=== PATIENT | female | born 1950 | race Caucasian/White ===

== ENCOUNTER 2018-03-19 13:25 | Observation (INO) | payer OTHER ==
[~2018-03-19] VITALS: Ht 170.2 cm; Wt 60.0 kg
[~2018-03-19 13:25] MED LIST: ALEN1TAB2 PO; CALC-143 PO; CANA100T PO; CHOL100062 PO; DOCU-144 PO; EMPA1TAB11 PO; GABA-526 PO; GABA300C16 PO; HYDR-3498 PO; IBUP-1542 PO; RANI300T PO; SIMV10TA2 PO; SITA1TAB7 PO; TOPI25TA10 PO
--- NOTE | 2018-03-19 14:19 | ERD ---
ER Documentation Chief Complaint Chief Complaint BIB RA FROM [facility] [place]AL OF CP/SOB HPI The patient is a 67-year-old female, presenting to the ER from [facility] because of chest pain and dyspnea after having had left hand surgery around 12 PM. She complains of generalized body twitching, left-sided chest pain 8/10, dyspnea. She denies fever, chills, syncope, near syncope, neck pain, chest pain with vomiting/radiation/exertion/diaphoresis, abdominal pain, vomiting, dysuria, diarrhea. She does not smoke nor drink Past medical history: Dyslipidemia, diabetes mellitus, diabetic neuropathy Past surgical history: Left hand surgery ROS All systems reviewed and are negative except as per history of present illness. Medications Home Meds Active Scripts Docusate Sodium* (Colace*) 100 Mg Capsule, 100 MG PO TID, #30 CAP Prov:CARLOS VILLALOBOS MD 08/10/15 Hydrocodone Bit-Acetaminophen* ([place]*) 5-325 Mg Tab, 1 TAB PO Q6 PRN for PAIN, #20 TAB Prov:CARLOS VILLALOBOS MD 08/10/15 Ibuprofen* (Motrin*) 600 Mg Tab, 600 MG PO Q8, #30 TAB Prov:CARLOS VILLALOBOS MD 08/10/15 Reported Medications Cholecalciferol* (Vitamin D3*) 1,000 Unit Tablet, 1000 UNIT PO DAILY, TAB 08/04/16 Calcium Citrate/Vitamin D (Citracal-Vitamin D 200 MG-250) 1 Each Tablet, 1 EACH PO BID, TAB 08/04/16 Empagliflozin/Metformin HCl (Synjardy 12.5-500 mg Tablet) 1 Each Tablet, 1 EACH PO, TAB 08/04/16 Gabapentin* (Gabapentin*) 300 Mg Capsule, 300 MG PO BID, #60 CAP 08/04/16 Ranitidine Hcl* (Ranitidine Hcl*) 300 Mg Tablet, 300 MG PO HS, #30 TAB 08/04/16 Alendronate Sodium/Vitamin D3 (Fosamax Plus D 70 mg-2,800 Iu) 1 Each Tablet, 1 EACH PO, TAB 08/04/16 Simvastatin (Simvastatin) 10 Mg Tablet, 10 MG PO QHS, #30 TAB 08/04/16 Gabapentin* (Gabapentin*) 600 Mg Tablet, 600 MG PO QHS, #60 TAB 5/31/16 Topiramate* (Topiramate*) 25 Mg Tablet, 25 MG PO BID, TAB 08/10/15 Ranitidine Hcl* (Ranitidine Hcl*) 300 Mg Tablet, 300 MG PO HS, #30 TAB 08/10/15 Sitagliptin Phos-Metformin Hcl (Janumet) 50-1,000 Mg Tablet, 1 TAB PO DAILY, #60 TAB 08/10/15 Canagliflozin (Invokana) 100 Mg Tablet, 100 MG PO DAILY, TAB 08/10/15 Allergies Allergies: Coded Allergies: No Known Drug Allergy (Verified Allergy, Unknown, 10/08/13) PMhx/Soc History of Surgery: No Anesthesia Reaction: No Hx Neurological Disorder: No Hx Respiratory Disorders: No Hx Cardiac Disorders: Yes (HIGH CHOL) Hx Psychiatric Problems: No Hx Miscellaneous Medical Probl: No Hx Alcohol Use: Yes (OCCASIONALLY) Hx Substance Use: No Hx Tobacco Use: No Physical Exam Vitals Vital Signs Date Temp Pulse Resp B/P (MAP) Pulse Ox O2 O2 Flow FiO2 Time Delivery Rate 03/19/18 89 12 107/73 97 Room Air 17:07 (84) 03/19/18 100 18 132/56 97 Room Air 16:15 (81) 03/19/18 93 17 107/55 97 Room Air 14:20 (72) 03/19/18 97.9 89 17 116/59 97 13:57 (78) Physical Exam Const: No acute distress. Head: Atraumatic. Eyes: Normal Conjunctiva. ENT: Normal External Ears, Nose and Mouth. Neck: Full range of motion. No meningismus. Resp: Clear to auscultation bilaterally. Cardio: Regular rate and rhythm. Abd: Soft, non distended, normal bowel sounds, non tender. Skin: No petechiae or rashes. Back: No midline or flank tenderness. Ext: No cyanosis, or edema. Left hand is immobilized Neur: Awake and alert. No focal deficit Psych: Normal Mood and Affect. Result Diagram: 03/19/18 1439 03/19/18 1440 Results 24 hrs Laboratory Tests Test 03/19/18 14:39 03/19/18 14:40 White Blood Count 11.0 10^3/ul Red Blood Count 4.48 10^6/ul Hemoglobin 13.8 g/dl Hematocrit 40.1 % Mean Corpuscular Volume 89.5 fl Mean Corpuscular Hemoglobin 30.8 pg Mean Corpuscular Hemoglobin Concent 34.4 g/dl Red Cell Distribution Width 13.1 % Platelet Count 318 10^3/UL Mean Platelet Volume 9.2 fl Immature Granulocytes % 0.500 % Neutrophils % 77.3 % Lymphocytes % 14.3 % Monocytes % 6.5 % Eosinophils % 0.9 % Basophils % 0.5 % Nucleated Red Blood Cells % 0.0 /100WBC Immature Granulocytes # 0.060 10^3/ul Neutrophils # 8.5 10^3/ul Lymphocytes # 1.6 10^3/ul Monocytes # 0.7 10^3/ul Eosinophils # 0.1 10^3/ul Basophils # 0.1 10^3/ul Nucleated Red Blood Cells # 0.0 10^3/ul Prothrombin Time 12.3 Sec Prothrombin Time Ratio 1.0 INR International Normalized Ratio 0.90 Activated Partial Thromboplast Time 27.3 Sec D-Dimer 1375.14 ng/ml D-Dimer Comment Sodium Level 141 mmol/L Potassium Level 4.3 mmol/L Chloride Level 109 mmol/L Carbon Dioxide Level 24 mmol/L Anion Gap 8 Blood Urea Nitrogen 16 mg/dl Creatinine 0.50 mg/dl Est Glomerular Filtrat Rate mL/min > 60 mL/min Glucose Level 121 mg/dl Calcium Level 9.4 mg/dl Troponin I < 0.012 ng/ml Current Medications Medications Dose Sig/Jason Start Time Status Last (Trade) Ordered Route PRN Stop Time Admin Dose Reason Admin Sodium 1,000 ml @ Q1H ONCE 03/19/18 DC 03/19/18 Chloride 1,000 mls/hr IV 14:30 03/19/18 14:37 15:29 IV Flush 10 ml STK-MED 03/19/18 DC 03/19/18 (NS 10 ml) ONCE .ROUTE 15:49 03/19/18 15:56 15:50 Sodium 100 ml @ ud STK-MED 03/19/18 DC 03/19/18 Chloride ONCE .ROUTE 15:49 03/19/18 15:58 15:50 Iohexol 100 ml @ ud STK-MED 03/19/18 DC 03/19/18 ONCE .ROUTE 15:49 03/19/18 15:56 15:50 Aspirin 162 mg ONCE ONCE 03/19/18 DC 03/19/18 (Aspirin) PO 17:00 03/19/18 16:48 17:01 1,000 unit DAILY PO 03/20/18 UNV Cholecalcifer 09:00 ol (Vitamin D) Gabapentin 200 mg QHS PO 03/19/18 UNV (Neurontin) 21:00 10 mg QHS PO 03/19/18 UNV Miscellaneous 21:00 Information IV Flush 3 ml PER 03/19/18 UNV (NS 3 ml) PROTOCOL IV 18:30 Ondansetron 4 mg Q6H PRN 03/19/18 UNV HCl (Zofran IV NAUSEA 18:30 Inj) AND/OR VOMITING 1 tab Q5M PRN 03/19/18 UNV Nitroglycerin SL CHEST 18:30 PAIN (Nitroglyceri n (Sl Tab) 0.4 Mg) 650 mg Q6H PRN 03/19/18 UNV Acetaminophen PO PAIN 18:30 (Tylenol LEVEL 1-3 OR Tab) FEVER Morphine 2 mg Q4H PRN 03/19/18 UNV Sulfate IV PAIN 18:30 (morphine) LEVEL 7-10 Docusate 100 mg Q12H PRN 03/19/18 UNV Sodium PO 18:30 (Colace) CONSTIPATION Magnesium 30 ml DAILY PRN 03/19/18 UNV Hydroxide PO 18:30 (Milk Of Mag) CONSTIPATION 40 mg BID IV 03/19/18 UNV Pantoprazole 21:00 (Protonix Iv) Enoxaparin 40 mg DAILY SC 03/20/18 UNV Sodium 09:00 (Lovenox) Procedures/[place] [id number] Radiology Main Line: [phone] DIAGNOSTIC IMAGING REPORT Patient: IMMANUEL MENDOZA : 1950 Age: 67 Sex: F MR #: [id number] DOS: 03/19/18 1523 Ordering MD: FITO BLEDSOE MD Location: E/R Room/Bed: PROCEDURE: CTA Chest and pulmonary angiogram. CLINICAL INDICATION: Chest pain and shortness of breath.. TECHNIQUE: CT scan of the chest and CT pulmonary angiogram was performed on multi-slice volumetric CT scanner. High-resolution thin slice coronal and sagittal imaging was obtained from the axial source images following the uncomplicated intravenous administration of 100 cc of Isovue 370 contrast. The images were reviewed on a PACS workstation. 3-D post-processing performed. DICOM images are available. DLP = 465.6 mGy-cm. CTDIVol = 25.4, 12 mGy. One or more of the following dose reduction techniques were used: Automated exposure control. Adjustment of the mA and/or kV according to patient size. Use of iterative reconstruction technique. COMPARISON: No prior studies are available for comparison. FINDINGS: CT chest: The lungs are clear of alveolar infiltrates, edema, or effusions. There is mild scarring in the right middle lobe. Small subpleural nodules measuring up to 3 mm is seen in the lingula of the left upper lobe likely post inflammatory in nature.. Mediastinum and hilum show no significant mass or adenopathy. The vascular structures of the mediastinum are normal in course and caliber. The heart size is normal without pericardial thickening or effusion. The axillary, subpectoral, and supraclavicular regions are unremarkable. Imaging obtained through the upper abdomen is equally unremarkable. The adrenal glands are symmetrically normal. Chest wall is unremarkable. The spine is unremarkable. There is a small hiatal hernia. There is an old granulomas calcification in the right lobe of the liver. CT pulmonary angiogram: The main pulmonary artery, bilateral pulmonary arterial trunks, lobar and segmental branches of the pulmonary arteries show no evidence of filling defect and/or pulmonary emboli. The aorta is normal in caliber without aneurysm or dissection. IMPRESSION: 1. No evidence of pulmonary emboli, aortic aneurysm or dissection.. 2. Mild fibronodular scarring in the right middle lobe and lingula likely from old granulomatous disease. 3. Small hiatal hernia.. RPTAT: GG .Abdiaziz Redman MD, MD Date Time Electronically viewed and signed by .Abdiaziz Redman MD, on 03/19/2018 16:31 .L/ CC: FITO BLEDSOE MD [id number] [place] [address] Radiology Main Line: [phone] DIAGNOSTIC IMAGING REPORT Patient: IMMANUEL MENDOZA : 1950 Age: 67 Sex: F MR #: [id number] DOS: 03/19/18 1424 Ordering MD: FITO BLEDSOE MD Location: E/R Room/Bed: PROCEDURE: XR Chest. CLINICAL INDICATION: Chest Pain. TECHNIQUE: Single frontal view of the chest was obtained COMPARISON: 08/10/2015 FINDINGS: The heart and mediastinum are within normal limits. The lungs are clear. There is no pleural effusion or pneumothorax. The bones and soft tissue show no acute change. IMPRESSION: No acute abnormalities are identified on this single view. RPTAT:AAJJ Physician Fay Date Time Electronically viewed and signed by Jim Gonzalez Physician on 03/19/2018 15:00 MC/ CC: FITO BLEDSOE MD [id number] EKG: At 2:30 PM read by emergency physician Rate/Rhythm: Normal Sinus Rhythm 87 beats/min QRS, ST, T-waves: No ST elevation, no T inversion Impression: Normal EKG EKG: At 3:05 PM read by emergency physician Rate/Rhythm: Normal Sinus Rhythm 85 beats/min QRS, ST, T-waves: No ST elevation, no T inversion Impression: Normal EKG EKG: At 4:12PM read by emergency physician Rate/Rhythm: Normal Sinus Rhythm 98 beats/min QRS, ST, T-waves: No ST elevation, no T inversion Impression: Normal EKG MEDICAL MAKING DECISION: The patient is a 67-year-old female, presenting with acute chest pain after surgery, acute dehydration. She was treated with 1 L normal saline for acute dehydration, aspirin 162 mg p.o. for acute chest pain with good response. The differential diagnoses considered include but are not limited to acute coronary syndrome, acute myocardial infarction, pericarditis, pulmonary embolism, aortic dissection, pneumonia, pleural effusion, pneumothorax, GERD, chest wall pain. Departure Diagnosis: Primary Impression: Chest pain Condition: Stable Comments I discussed the findings with the patient. I discussed the patient with the hospitalist Dr Salgado at 4:40 pm. who was made aware of the lab, the treatment, the patient condition. The patient is admitted to [facility] Disclaimer: Inadvertent spelling and grammatical errors are likely due to EHR/dictation software use and do not reflect on the overall quality of patient care. Also, please note that the electronic time recorded on this note does not necessarily reflect the actual time of the patient encounter. FITO BLEDSOE MD Mar 19, 2018 14:19
[2018-03-19] MEDS ORDERED: SOD CHLORIDE 0.9% 1,000 ML IV ONE (14:30)
[2018-03-19] MEDS ORDERED: IOHEXOL 100 ML ONE (15:49)
[2018-03-19] MEDS ORDERED: SOD CHLORIDE 0.9% 100 ML ONE (15:49)
[2018-03-19] MEDS ORDERED: ASPIRIN 81 MG TAB PO ONE (17:00)
--- NOTE | 2018-03-19 18:18 | HP ---
Date/Time of Note Date/Time of Note DATE: 03/19/18 TIME: 18:10 Assessment/Plan VTE Prophylaxis SCD applied (from Nsg): Yes Pharmacological prophylaxis: LMWH Lines/Catheters IV Catheter Type (from Nrsg): Saline Lock Assessment/Plan Assessment/Plan 1. Acute chest pain, rule out ACS - Patients pain sounds more GI etiology but will rule out ACS - EKG shows no acute ST changes or elevation - Trop negative and will continue to trend - ECHO ordered - Aspirin, nitro, morphine, O2 as needed for pain 2. Acute shortness of breath - CTA negative for PE - Nebs PRN 3. DM - Will check A1c - holding home PO medications - ISS and accuchecks 4. 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 GERD - on H2 [place] and will start on PPI while in house 6. Diet - Carb controlled 7. Code status - Full 8. Disposition - Admit to telemetry for ACS rule out Result Diagram: 03/19/18 1439 03/19/18 1440 Results 24hrs Laboratory Tests Test 03/19/18 14:39 03/19/18 14:40 White Blood Count 11.0 #H Red Blood Count 4.48 Hemoglobin 13.8 Hematocrit 40.1 Mean Corpuscular Volume 89.5 Mean Corpuscular Hemoglobin 30.8 Mean Corpuscular Hemoglobin Concent 34.4 Red Cell Distribution Width 13.1 Platelet Count 318 Mean Platelet Volume 9.2 Immature Granulocytes % 0.500 H Neutrophils % 77.3 H Lymphocytes % 14.3 L Monocytes % 6.5 Eosinophils % 0.9 Basophils % 0.5 Nucleated Red Blood Cells % 0.0 Immature Granulocytes # 0.060 H Neutrophils # 8.5 H Lymphocytes # 1.6 Monocytes # 0.7 Eosinophils # 0.1 Basophils # 0.1 Nucleated Red Blood Cells # 0.0 Prothrombin Time 12.3 Prothrombin Time Ratio 1.0 INR International Normalized Ratio 0.90 Activated Partial Thromboplast Time 27.3 D-Dimer 1375.14 H D-Dimer Comment Sodium Level 141 Potassium Level 4.3 Chloride Level 109 Carbon Dioxide Level 24 Anion Gap 8 Blood Urea Nitrogen 16 Creatinine 0.50 Est Glomerular Filtrat Rate mL/min > 60 Glucose Level 121 Calcium Level 9.4 Troponin I < 0.012 HPI/ROS Admit Date/Time Admit Date/Time 03/19/18 at 1800 Hx of Present Illness 67 yo F with PMH DM and left hand surgery performed today 03/19 presented to ED following chest pain and twitching that occurred in the recovery room. Per daughter, patient had light anesthesia but was not intubated during surgical procedure. She was not recovering quickly in the PACU and was found to be twitching and complaining of sternal chest pain. EKG was performed in recovery and patient was instructed to proceed to ED for evaluation. Patient does admit to sternal chest pain that worsens with deep inhalation. She had associated nausea at time of onset but denies any vomiting, dizziness, LOC, or abdominal issues. Patient admits to having acid reflux with sour taste in her mouth in the mornings. She does admit to being very anxious/nervous this am prior to s urgical intervention. In ED patient was worked up for PE as well given elevated D-Dimer and CTA was negative for acute PE. ROS All 12 systems reviewed and pertinent positives as per HPI. All others negative. Constitutional: nausea; No chills, No fatigue Eyes: No discharge ENT: No congestion Respiratory: pain, shortness of breath; No cough, No sputum, No wheezing Cardiovascular: chest pain, palpitations; No edema, No lightheadedness Gastrointestinal: pain; No constipation, No diarrhea, No nausea, No vomiting Genitourinary: no complaints Musculoskeletal: no complaints Skin: No laceration, No rash Neurologic: No confusion, No focal-weakness, No headache, No syncope Endocrine: no complaints Lymphatic: no complaints Psychological: nl mood/affect Immunologic: no complaints PMH/Family/Social Past Medical History Medical History: diabetes Coded Allergies: No Known Drug Allergy (Verified Allergy, Unknown, 10/08/13) Past Surgical History Past Surgical Hx: other (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 answering questions appropriately HEENT: Atraumatic, normocephalic. The pupils are equal, round and reactive. Extraocular motor are intact Neck: Supple with full range of motion. No rigidity or meningismus Chest: Nontender Lungs: Clear to auscultation bilaterally no crackles rales or wheezing Heart: Normal S1-S2, Regular rhythm and rate. no murmurs Abdomen: Soft , nontender to palpation of the abdomen, bowel sounds are present. No guarding no rebound tenderness , No masses or organomegaly. Extremities: Normal to inspection, no edema no cyanosis Neurologic: Normal mental status, speech is normal, cranial nerves II through XII intact. Additional Comments Home medications reviewed Imaging: PROCEDURE: CTA Chest and pulmonary angiogram. CLINICAL INDICATION: Chest pain and shortness of breath.. TECHNIQUE: CT scan of the chest and CT pulmonary angiogram was performed on the multi-slice volumetric CT scanner. High-resolution thin slice coronal and sagittal imaging was obtained from the axial source images following the uncomplicated intravenous administration of 100 cc of Isovue 370 contrast. The images were reviewed on a PACS workstation. 3-D post-processing performed. DICOM images are available. DLP = 465.6 mGy-cm. CTDIVol = 25.4, 12 mGy. One or more of the following dose reduction techniques were used: Automated exposure control. Adjustment of the mA and/or kV according to patient size. Use of iterative reconstruction technique. COMPARISON: No prior studies are available for comparison. FINDINGS: CT chest: The lungs are clear of alveolar infiltrates, edema, or effusions. There is mild scarring in the right middle lobe. Small subpleural nodules measuring up to 3 mm is seen in the lingula of the left upper lobe likely post inflammatory in nature.. Mediastinum and hilum show no significant mass or adenopathy. The vascular structures of the mediastinum are normal in course and caliber. The heart size is normal without pericardial thickening or effusion. The axillary, subpectoral, and supraclavicular regions are unremarkable. Imaging obtained through the upper abdomen is equally unremarkable. The adrenal glands are symmetrically normal. Chest wall is unremarkable. The spine is unremarkable. There is a small hiatal hernia. There is an old granulomas calcification in the right lobe of the liver. CT pulmonary angiogram: The main pulmonary artery, bilateral pulmonary arterial trunks, lobar and segmental branches of the pulmonary arteries show no evidence of filling defect and/or pulmonary emboli. The aorta is normal in caliber without aneurysm or d issection. IMPRESSION: 1. No evidence of pulmonary emboli, aortic aneurysm or dissection.. 2. Mild fibronodular scarring in the right middle lobe and lingula likely from old granulomatous disease. 3. Small hiatal hernia.. RPTAT: GG .Abdiaziz Redman MD, MD Date Time Electronically viewed and signed by .Abdiaziz Redman MD, MD on 03/19/2018 16:31 PROCEDURE: XR Chest. CLINICAL INDICATION: Chest Pain. TECHNIQUE: Single frontal view of the chest was obtained COMPARISON: 08/10/2015 FINDINGS: The heart and mediastinum are within normal limits. The lungs are clear. There is no pleural effusion or pneumothorax. The bones and soft tissue show no acute change. IMPRESSION: No acute abnormalities are identified on this single view. RPTAT:AAJJ Physician Fay Date Time Electronically viewed and signed by Jim Gonzalez Physician on 03/19/2018 15:00 IMAN BLANTON MD Mar 19, 2018 18:18
[2018-03-19] MEDS ORDERED: morphine 2 MG INJ IV PRN (18:30)
[2018-03-19] MEDS ORDERED: NACL 0.9% 3 ML SYG IV SCH (18:30)
[2018-03-19] MEDS ORDERED: ONDANSETRON 4 MG INJ IV PRN (18:30)
[2018-03-19] MEDS ORDERED: ACETAMINOPHEN 325 MG TAB PO PRN (18:30)
[2018-03-19] MEDS ORDERED: DOCUSATE SODIUM 100 MG CAP PO PRN (18:30)
[2018-03-19] MEDS ORDERED: ALBUTEROL 0.083% (NEB) 2.5 MG/3 ML AMP HHN PRN (18:30)
[2018-03-19] MEDS ORDERED: MAGNESIUM HYDROXIDE 30ML CUP PO PRN (18:30)
[2018-03-19] MEDS ORDERED: NITROGLYCERIN (SL) 0.4 MG TAB SL PRN (18:30)
[2018-03-19] MEDS ORDERED: GLUCAGON 1 MG INJ IM PRN (19:00)
[2018-03-19] MEDS ORDERED: DEXTROSE 50% 50 ML SYRINGE IV PRN ×2 (19:00)
[2018-03-19] MEDS ORDERED: GLUCOSE GEL 15 GRAM TUBE PO PRN ×2 (19:00)
[2018-03-19] MEDS ORDERED: GLUCOSE GEL 15 GRAM TUBE BUCCAL PRN (19:00)
[2018-03-19] MEDS: HYDROCODONE/APAP (5/325) TAB PO PRN (19:01)
[2018-03-19 20:45] VITALS: Ht 170.2 cm; Wt 60.0 kg
[2018-03-19 20:46] VITALS: BP 116/56; PULSE 74; RESP 18
[2018-03-19] MEDS: INSULIN ASPART [NOVOLOG] 3 ML PEN SC SCH (21:00)
[2018-03-19] MEDS ORDERED: ATORVASTATIN 10 MG TAB PO SCH (21:00)
[2018-03-19] MEDS ORDERED: GABAPENTIN 100 MG CAP PO SCH (21:00)
[2018-03-19 21:29] VITALS: PULSE 74
[2018-03-19] MEDS: PANTOPRAZOLE 40 MG INJ IV SCH (22:27)
[2018-03-19] MEDS: morphine SULFATE/PF (2 MG/2 ML) SYG IV PRN (22:36)
[2018-03-20] VITALS (9 sets, daily range): BP systolic 97–130; BP diastolic 48–62; PULSE 74–90; RESP 18
[2018-03-20] MEDS: morphine SULFATE/PF (2 MG/2 ML) SYG IV PRN (02:32)
[2018-03-20] MEDS: INSULIN ASPART [NOVOLOG] 3 ML PEN SC SCH ×2 (07:57→11:59)
--- NOTE | 2018-03-20 08:38 | PN ---
Date/Time of Note Date/Time of Note DATE: 03/20/18 TIME: 08:38 Assessment/Plan VTE Prophylaxis SCD applied (from Nsg): Yes Pharmacological prophylaxis: LMWH Lines/Catheters IV Catheter Type (from Nrsg): [place] Assessment/Plan Assessment/Plan 1. Acute chest pain, noncardiac - patient admits to having a hiatal hernia and improvement in pain after given PPI and Carafate - Serial troponins negative - EKG shows no acute ST changes or elevation - ECHO performed this am and awaiting results - Aspirin, nitro, morphine, O2 as needed for pain 2. Acute shortness of breath - CTA negative for PE - Nebs PRN 3. DM - A1c noted - holding home PO medications - ISS and accuchecks 4. 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 GERD with hiatal hernia - PPI and Carafate on board 6. Disposition - Pain improved with GI treatments. Medically stable for discharge home. Result Diagram: 03/20/18 0538 03/20/18 0538 Results 24hrs Laboratory Tests Test 03/19/18 14:39 03/19/18 14:40 03/19/18 21:14 03/19/18 22:23 White Blood Count 11.0 #H Red Blood Count 4.48 Hemoglobin 13.8 Hematocrit 40.1 Mean Corpuscular Volume 89.5 Mean Corpuscular 30.8 Hemoglobin Mean Corpuscular 34.4 Hemoglobin Concent Red Cell Distribution 13.1 Width Platelet Count 318 Mean Platelet Volume 9.2 Immature Granulocytes % 0.500 H Neutrophils % 77.3 H Lymphocytes % 14.3 L Monocytes % 6.5 Eosinophils % 0.9 Basophils % 0.5 Nucleated Red Blood 0.0 Cells % Immature Granulocytes # 0.060 H Neutrophils # 8.5 H Lymphocytes # 1.6 Monocytes # 0.7 Eosinophils # 0.1 Basophils # 0.1 Nucleated Red Blood 0.0 Cells # Hemoglobin A1c 7.6 H Prothrombin Time 12.3 Prothrombin Time Ratio 1.0 INR International 0.90 Normalized Ratio Activated 27.3 Partial Thromboplast Time D-Dimer 1375.14 H D-Dimer Comment Sodium Level 141 Potassium Level 4.3 Chloride Level 109 Carbon Dioxide Level 24 Anion Gap 8 Blood Urea Nitrogen 16 Creatinine 0.50 Est Glomerular Filtrat > 60 Rate mL/min Glucose Level 121 Calcium Level 9.4 Troponin I < 0.012 < 0.012 Creatine Kinase 47 Creatine Kinase Index 0.8 Creatinine Kinase MB 0.36 (Mass) Bedside Glucose 136 Test 03/20/18 02:19 03/20/18 05:38 03/20/18 07:51 Creatine Kinase 49 Creatine Kinase Index 0.7 Creatinine Kinase MB 0.36 (Mass) Troponin I < 0.012 White Blood Count 8.8 Red Blood Count 4.24 Hemoglobin 13.0 Hematocrit 38.1 Mean Corpuscular Volume 89.9 Mean Corpuscular 30.7 Hemoglobin Mean Corpuscular 34.1 Hemoglobin Concent Red Cell Distribution 13.2 Width Platelet Count 313 Mean Platelet Volume 9.4 Immature Granulocytes % 0.600 H Neutrophils % 67.8 Lymphocytes % 21.0 Monocytes % 8.6 Eosinophils % 1.7 Basophils % 0.3 Nucleated Red Blood 0.0 Cells % Immature Granulocytes # 0.050 H Neutrophils # 6.0 Lymphocytes # 1.9 Monocytes # 0.8 Eosinophils # 0.2 Basophils # 0.0 Nucleated Red Blood 0.0 Cells # Sodium Level 141 Potassium Level 3.7 Chloride Level 108 Carbon Dioxide Level 25 Anion Gap 8 Blood Urea Nitrogen 12 Creatinine 0.50 Est Glomerular Filtrat > 60 Rate mL/min Glucose Level 123 Calcium Level 9.0 Magnesium Level 2.2 Bedside Glucose 110 Subjective 24 Hr Interval Summary Free Text/Dictation Patient doing well and states chest discomfort improved after Carafate. Patient admits to having an EGD 2 years ago and told she has a hiatal hernia. Exam/Review of Systems Vital Signs Vitals Vital Signs Date Temp Pulse Resp B/P (MAP) Pulse Ox O2 O2 Flow FiO2 Time Delivery Rate 03/20/18 90 08:35 03/20/18 98.3 18 130/61 98 Room Air 08:05 (84) Intake and Output 03/19/18 03/19/18 03/20/18 1515:00 23:00 07:00 IntakeIntake Total 300 ml BalanceBalance 300 ml Exam General: Patient is a pleasant female, no acute distress. answering questions appropriately Neck: Supple Chest: Nontender Lungs: Clear to auscultation bilaterally no crackles rales or wheezing Heart: Normal S1-S2, Regular rhythm and rate. no murmurs Abdomen: Soft , nontender to palpation of the abdomen, bowel sounds are present. No guarding no rebound tenderness , No masses or organomegaly. Extremities: Normal to inspection, no edema no cyanosis Neurologic: Normal mental status, speech is normal, cranial nerves II through XII intact. Medications Medications Current Medications Cholecalciferol (Vitamin D) 1,000 unit DAILY PO ; Start 03/20/18 at 09:00 Gabapentin (Neurontin) 200 mg QHS PO Last administered on 03/19/18at 22:07; Admin Dose 200 MG; Start 03/19/18 at 21:00 Atorvastatin Calcium (Lipitor) 10 mg DAILY@21 PO Last administered on 03/19/18at 22:07; Admin Dose 10 MG; Start 03/19/18 at 21:00 IV Flush (NS 3 ml) 3 ml PER PROTOCOL IV ; Start 03/19/18 at 18:30 Ondansetron HCl (Zofran Inj) 4 mg Q6H PRN IV NAUSEA AND/OR VOMITING Last administered on 03/20/18at 08:05; Admin Dose 4 MG; Start 03/19/18 at 18:30 Nitroglycerin (Nitroglycerin (Sl Tab) 0.4 Mg) 1 tab Q5M PRN SL CHEST PAIN; Start 03/19/18 at 18:30 Acetaminophen (Tylenol Tab) 650 mg Q6H PRN PO PAIN LEVEL 1-3 OR FEVER; Start 03/19/18 at 18:30 Docusate Sodium (Colace) 100 mg Q12H PRN PO CONSTIPATION; Start 03/19/18 at 18:30 Magnesium Hydroxide (Milk Of Mag) 30 ml DAILY PRN PO CONSTIPATION; Start 03/19/18 at 18:30 Pantoprazole (Protonix Iv) 40 mg BID IV Last administered on 03/19/18at 22:27; Admin Dose 40 MG; Start 03/19/18 at 21:00 Enoxaparin Sodium (Lovenox) 40 mg DAILY SC ; Start 03/20/18 at 09:00 Albuterol (Proventil 0.083% (Neb)) 2.5 mg Q2H RESP THERAPY PRN HHN SHORTNESS OF BREATH; Start 03/19/18 at 18:30 Insulin Aspart (Novolog Insulin Pen) NOVOLOG *MILD* ALGORITHM WITH MEALS BEDTIME SC ; Start 03/19/18 at 21:00 Acetaminophen/ Hydrocodone Bitart ([place] (5/325)) 1 tab Q4H PRN PO MODERATE PAIN LEVEL 4-6 Last administered on 03/19/18at 19:01; Admin Dose 1 TAB; Start 03/19/18 at 18:30 Miscellaneous Information 1 ea NOTE XX ; Start 03/19/18 at 19:00 Glucose (Glutose) 15 gm Q15M PRN PO DECREASED GLUCOSE; Start 03/19/18 at 19:00 Glucose (Glutose) 22.5 gm Q15M PRN PO DECREASED GLUCOSE; Start 03/19/18 at 19:00 Dextrose (D50w Syringe) 25 ml Q15M PRN IV DECREASED GLUCOSE; Start 03/19/18 at 19:00 Dextrose (D50w Syringe) 50 ml Q15M PRN IV DECREASED GLUCOSE; Start 03/19/18 at 19:00 Glucagon (Glucagen) 1 mg Q15M PRN IM DECREASED GLUCOSE; Start 03/19/18 at 19:00 Glucose (Glutose) 15 gm Q15M PRN BUCCAL DECREASED GLUCOSE; Start 03/19/18 at 19:00 Morphine Sulfate (morphine SULFATE (PF)) 2 mg Q4H PRN IV PAIN LEVEL 7-10 Last administered on 03/20/18at 02:32; Admin Dose 2 MG; Start 03/19/18 at 22:00 IMAN BLANTON MD Mar 20, 2018 08:38
[2018-03-20] MEDS ORDERED: CHOLECALCIFEROL 1,000 UNIT TAB PO SCH (09:00)
[2018-03-20] MEDS ORDERED: ENOXAPARIN 40 MG/0.4 ML SYG SC SCH (09:00)
[2018-03-20] MEDS: PANTOPRAZOLE 40 MG INJ IV SCH (09:15)
[2018-03-20] MEDS: HYDROCODONE/APAP (5/325) TAB PO PRN ×2 (09:16→13:43)
[2018-03-20] MEDS: SUCRALFATE 1 GM TAB PO SCH ×2 (11:59→13:42)
[2018-03-20] MEDS ORDERED: GABA100C14 PO (14:33)
[2018-03-20] MEDS ORDERED: PANT40TA4 PO (14:33)
[2018-03-20] MEDS ORDERED: SUCR1TAB56 PO (14:33)
--- NOTE | 2018-03-20 14:35 | PDOCDIS ---
Discharge Instructions DIAGNOSIS Discharge Diagnosis 1. Acute chest pain, noncardiac 2. Acute shortness of breath- resolved 3. DM 4. L hand surgery 5. GERD with hiatal hernia CONDITION [id number] Patient Condition: [id number] Stable HOME CARE INSTRUCTIONS: [id number] Diet Instructions: [id number] Low Fat /Cholesterol ACTIVITY: [id number] Activity Restrictions: [id number] No Restrictions FOLLOW UP/APPOINTMENTS Follow-up Plan 1. Follow up with your primary care physician in 1 week 2. Continue all medications as previously prescribed 3. Continue on Pantoprazole 40mg twice a day for 8 weeks then continue daily 4. Take Carafate four times a day for 2 weeks. If still with discomfort, continue for another 2 weeks 5. If symptoms return or worsen, please go to your closest emergency department IMAN BLANTON MD Mar 20, 2018 14:35
--- NOTE | 2018-03-20 14:38 | RADRPT ---
Echocardiogram Report Patient Name: IMMANUEL MENDOZA Gender: Female Date: 1950 Study Date: 20-Mar-2018 Rib Bender: TB Location: 612[facility] Ref. Physician: IMAN BLANTON Quality: Adequate Procedures: Transthoracic echocardiogram with complete 2D, M-Mode, and doppler examination. Indications: Chest Pain. 2D/M Mode Doppler Measurement Value Normal Ranges Measurement Value Normal Ranges AoR Diam MM 2.8 cm AV Mean Rafa 1.0 m/sec ACS MM 1.7 cm AV Mean PG 4.0 mmHg LA/Ao MM 0.9 AV Peak Rafa 1.4 m/sec LA Dimen MM 2.4 cm AV Peak PG 8.0 mmHg LVIDd 2D 4.2 3.5 - 5.6 cm AV VTI 30.5 cm LVIDs 2D 2.8 2.1 - 4.1 cm LVOT Mean Rafa 0.8 m/sec LVPWd 2D 0.8 0.6 - 1.1 cm LVOT Mean PG 3.0 mmHg IVSd 2D 0.8 0.6 - 1.1 cm LVOT Peak Rafa 1.1 m/sec AoR Diam 2D 2.4 2.0 - 3.7 cm LVOT Peak PG 5.0 mmHg LA/Ao 2D 1 0 - 1 MV E Peak Rafa 0.7 m/sec EF 2D 61.0 50.0 - 65.0 % MV A Peak Rafa 0.8 m/sec LA Dimen 2D 2.1 2.3 - 4.0 cm MV E/A 0.9 IVC Diam 1.6 1.2 - 2.0 MV PHT 69.0 msec MV Decel Time 236 msec MV Decel [place] 3 Lat E` Rafa 0.1 m/sec Lateral E/E` 5.0 Med E` Rafa 0.1 m/sec MV E/A 0.9 MV PHT 69.0 msec MVA PHT 3.2 cm2 TAPSE 3.0 cm TR Peak Rafa 2.4 m/sec TR Peak PG 22.0 mmHg PV Peak Rafa 0.9 m/sec PV Peak PG 3.0 mmHg RVSP 25.0 mmHg RA Pressure 3.0 Findings Left Ventricle: Normal left ventricular systolic function. Normal left ventricular cavity size. Normal left ventricular wall thickness. Ejection fraction is visually estimated at 60 %. Right Ventricle: Normal right ventricular size. Normal right ventricular systolic function. Left Atrium: The left atrium is normal in size. Right Atrium: The right atrium is normal in size. Mitral Valve: Normal appearance and function of the mitral valve with trace physiologic regurgitation. Aortic Valve: Normal appearance of the aortic valve. No significant aortic stenosis or insufficiency. Tricuspid Valve: Normal appearance and function of the tricuspid valve with trace physiologic regurgitation. Normal right ventricular systolic pressure. Estimated peak PA systolic pressure 25 mmHg. Pulmonic Valve: Normal pulmonic valve appearance. Pericardium: Normal pericardium with no significant pericardial effusion. Aorta: Normal aortic root. IVC: Normal size and normal respiratory collapse consistent with normal right atrial pressure. Conclusions Normal left ventricular systolic function. Normal left ventricular cavity size. Normal left ventricular wall thickness. Ejection fraction is visually estimated at 60 %. No significant valvular stenosis or regurgitation seen. Normal appearance and function of the tricuspid valve with trace physiologic regurgitation. Normal right ventricular systolic pressure. Estimated peak PA systolic pressure 25 mmHg. Normal size and normal respiratory collapse consistent with normal right atrial pressure. Electronically Signed By: Jonathan Pinon 20-Mar-2018 14:38:08 -0800 Patient Name: IMMANUEL MENDOZA Study Date: 20-Mar-2018 [id number]
--- NOTE | 2018-03-20 18:01 | DS ---
Date/Time of Note Date/Time of Note DATE: 03/20/18 TIME: 17:59 Discharge Summary Admission/Discharge Info Admit Date/Time Mar 19, 2018 at 17:17 Discharge Date/Time Mar 20, 2018 at 16:22 Discharge Diagnosis 1. Acute chest pain, noncardiac 2. Acute shortness of breath- resolved 3. DM 4. L hand surgery 5. GERD with hiatal hernia Patient Condition: Stable Procedures Echocardiogram Report Patient Name: IMMANUEL MENDOZA Gender: Female Date: 1950 Study Date: 20-Mar-2018 Gift Basket Packer: TB Location: [facility] Ref. Physician: IMAN BLANTON Quality: Adequate Procedures: Transthoracic echocardiogram with complete 2D, M-Mode, and doppler examination. Indications: Chest Pain. 2D/M Mode Doppler Measurement Value Normal Ranges Measurement Value Normal Ranges AoR Diam MM 2.8 cm AV Mean Rafa 1.0 m/sec ACS MM 1.7 cm AV Mean PG 4.0 mmHg LA/Ao MM 0.9 AV Peak Rafa 1.4 m/sec LA Dimen MM 2.4 cm AV Peak PG 8.0 mmHg LVIDd 2D 4.2 3.5 - 5.6 cm AV VTI 30.5 cm LVIDs 2D 2.8 2.1 - 4.1 cm LVOT Mean Rfaa 0.8 m/sec LVPWd 2D 0.8 0.6 - 1.1 cm LVOT Mean PG 3.0 mmHg IVSd 2D 0.8 0.6 - 1.1 cm LVOT Peak Rafa 1.1 m/sec AoR Diam 2D 2.4 2.0 - 3.7 cm LVOT Peak PG 5.0 mmHg LA/Ao 2D 1 0 - 1 MV E Peak Rafa 0.7 m/sec EF 2D 61.0 50.0 - 65.0 % MV A Peak Rafa 0.8 m/sec LA Dimen 2D 2.1 2.3 - 4.0 cm MV E/A 0.9 IVC Diam 1.6 1.2 - 2.0 MV PHT 69.0 msec MV Decel Time 236 msec MV Decel [place] 3 Lat E` Rafa 0.1 m/sec Lateral E/E` 5.0 Med E` Rafa 0.1 m/sec MV E/A 0.9 MV PHT 69.0 msec MVA PHT 3.2 cm2 TAPSE 3.0 cm TR Peak Rafa 2.4 m/sec TR Peak PG 22.0 mmHg PV Peak Rafa 0.9 m/sec PV Peak PG 3.0 mmHg RVSP 25.0 mmHg RA Pressure 3.0 Findings Left Ventricle: Normal left ventricular systolic function. Normal left ventricular cavity size. Normal left ventricular wall thickness. Ejection fraction is visually estimated at 60 %. Right Ventricle: Normal right ventricular size. Normal right ventricular systolic function. Left Atrium: The left atrium is normal in size. Right Atrium: The right atrium is normal in size. Mitral Valve: Normal appearance and function of the mitral valve with trace physiologic regurgitation. Aortic Valve: Normal appearance of the aortic valve. No significant aortic stenosis or insufficiency. Tricuspid Valve: Normal appearance and function of the tricuspid valve with trace physiologic regurgitation. Normal right ventricular systolic pressure. Estimated peak PA systolic pressure 25 mmHg. Pulmonic Valve: Normal pulmonic valve appearance. Pericardium: Normal pericardium with no significant pericardial effusion. Aorta: Normal aortic root. IVC: Normal size and normal respiratory collapse consistent with normal right atrial pressure. Conclusions Normal left ventricular systolic function. Normal left ventricular cavity size. Normal left ventricular wall thickness. Ejection fraction is visually estimated at 60 %. No significant valvular stenosis or regurgitation seen. Normal appearance and function of the tricuspid valve with trace physiologic regurgitation. Normal right ventricular systolic pressure. Estimated peak PA systolic pressure 25 mmHg. Normal size and normal respiratory collapse consistent with normal right atrial pressure. PROCEDURE: CTA Chest and pulmonary angiogram. CLINICAL INDICATION: Chest pain and shortness of breath.. TECHNIQUE: CT scan of the chest and CT pulmonary angiogram was performed on the multi-slice volumetric CT scanner. High-resolution thin slice coronal and sagittal imaging was obtained from the axial source images following the uncomplicated intravenous administration of 100 cc of Isovue 370 contrast. The images were reviewed on a PACS workstation. 3-D post-processing performed. DICOM images are available. DLP = 465.6 mGy-cm. CTDIVol = 25.4, 12 mGy. One or more of the following dose reduction techniques were used: Automated exposure control. Adjustment of the mA and/or kV according to patient size. Use of iterative reconstruction technique. COMPARISON: No prior studies are available for comparison. FINDINGS: CT chest: The lungs are clear of alveolar infiltrates, edema, or effusions. There is mild scarring in the right middle lobe. Small subpleural nodules measuring up to 3 mm is seen in the lingula of the left upper lobe likely post inflammatory in nature.. Mediastinum and hilum show no significant mass or adenopathy. The vascular structures of the mediastinum are normal in course and caliber. The heart size is normal without pericardial thickening or effusion. The axillary, subpectoral, and supraclavicular regions are unremarkable. Imaging obtained through the upper abdomen is equally unremarkable. The adrenal glands are symmetrically normal. Chest wall is unremarkable. The spine is unremarkable. There is a small hiatal hernia. There is an old granulomas calcification in the right lobe of the liver. CT pulmonary angiogram: The main pulmonary artery, bilateral pulmonary arterial trunks, lobar and se gmental branches of the pulmonary arteries show no evidence of filling defect and/or pulmonary emboli. The aorta is normal in caliber without aneurysm or dissection. IMPRESSION: 1. No evidence of pulmonary emboli, aortic aneurysm or dissection.. 2. Mild fibronodular scarring in the right middle lobe and lingula likely from old granulomatous disease. 3. Small hiatal hernia.. RPTAT: GG .Abdiaziz Redman MD, MD Date Time Electronically viewed and signed by .Abdiaziz Redman MD, MD on 03/19/2018 16:31 PROCEDURE: XR Chest. CLINICAL INDICATION: Chest Pain. TECHNIQUE: Single frontal view of the chest was obtained COMPARISON: 08/10/2015 FINDINGS: The heart and mediastinum are within normal limits. The lungs are clear. There is no pleural effusion or pneumothorax. The bones and soft tissue show no acute change. IMPRESSION: No acute abnormalities are identified on this single view. RPTAT:AAJJ Physician Fay Date Time Electronically viewed and signed by Jim Gonzalez Physician on 03/19/2018 15:00 Hx of Present Illness 67 yo F with PMH DM and left hand surgery performed today 03/19 presented to ED following chest pain and twitching that occurred in the recovery room. Per daughter, patient had light anesthesia but was not intubated during surgical procedure. She was not recovering quickly in the PACU and was found to be twitching and complaining of sternal chest pain. EKG was performed in recovery and patient was instructed to proceed to ED for evaluation. Patient does admit to sternal chest pain that worsens with deep inhalation. She had associated nausea at time of onset but denies any vomiting, dizziness, LOC, or abdominal issues. Patient admits to having acid reflux with sour taste in her mouth in the mornings. She does admit to being very anxious/nervous this am prior to surgical intervention. In ED patient was worked up for PE as well given elevated D-Dimer and CTA was negative for acute PE. Hospital Course Patient was admitted for acute chest pain and ACS was ruled out with EKG absent of ST changes, negative serial troponins, and ECHO without any structural abnormalities. Patients chest pain improved after started on PPI and Carafate. Patient tolerated PO intake and denies any new symptoms. Patients presenting symptoms improved significantly and on day of discharge, vitals and physical exam were stable. Patient was discharged home in good condition. Home Meds Active Scripts Sucralfate* (Carafate*) 1 Gm Tab, 1 GM PO QID for 30 Days, #120 TAB Prov:IMAN BLANTON MD 03/20/18 Pantoprazole* (Pantoprazole*) 40 Mg Tablet.dr, 40 MG PO BID for 30 Days, #60 TAB 3 Refills Prov:IMAN BLANTON MD 03/20/18 Gabapentin* (Gabapentin*) 100 Mg Capsule, 200 MG PO QHS for 30 Days, #30 CAP Prov:IMAN BLANTON MD 03/20/18 Docusate Sodium* (Colace*) 100 Mg Capsule, 100 MG PO TID, #30 CAP Prov:CARLOS VILLALOBOS MD 08/10/15 Hydrocodone Bit-Acetaminophen* ([place]*) 5-325 Mg Tab, 1 TAB PO Q6 PRN for PAIN, #20 TAB Prov:CARLOS VILLALOBOS MD 08/10/15 Ibuprofen* (Motrin*) 600 Mg Tab, 600 MG PO Q8, #30 TAB Prov:CARLOS VILLALOBOS MD 08/10/15 Reported Medications Cholecalciferol* (Vitamin D3*) 1,000 Unit Tablet, 1000 UNIT PO DAILY, TAB 08/04/16 Calcium Citrate/Vitamin D (Citracal-Vitamin D 200 MG-250) 1 Each Tablet, 1 EACH PO BID, TAB 08/04/16 Empagliflozin/Metformin HCl (Synjardy 12.5-500 mg Tablet) 1 Each Tablet, 1 EACH PO, TAB 08/04/16 Alendronate Sodium/Vitamin D3 (Fosamax Plus D 70 mg-2,800 Iu) 1 Each Tablet, 1 EACH PO, TAB 08/04/16 Simvastatin (Simvastatin) 10 Mg Tablet, 10 MG PO QHS, #30 TAB 08/04/16 Discontinued Reported Medications Gabapentin* (Gabapentin*) 300 Mg Capsule, 300 MG PO BID, #60 CAP 08/04/16 Ranitidine Hcl* (Ranitidine Hcl*) 300 Mg Tablet, 300 MG PO HS, #30 TAB 08/04/16 Gabapentin* (Gabapentin*) 600 Mg Tablet, 600 MG PO QHS, #60 TAB 08/10/15 Topiramate* (Topiramate*) 25 Mg Tablet, 25 MG PO BID, TAB 08/10/15 Ranitidine Hcl* (Ranitidine Hcl*) 300 Mg Tablet, 300 MG PO HS, #30 TAB 08/10/15 Sitagliptin Phos-Metformin Hcl (Janumet) 50-1,000 Mg Tablet, 1 TAB PO DAILY, #60 TAB 08/10/15 Canagliflozin (Invokana) 100 Mg Tablet, 100 MG PO DAILY, TAB 08/10/15 Follow-up Plan 1. Follow up with your primary care physician in 1 week 2. Continue all medications as previously prescribed 3. Continue on Pantoprazole 40mg twice a day for 8 weeks then continue daily 4. Take Carafate four times a day for 2 weeks. If still with discomfort, continue for another 2 weeks 5. If symptoms return or worsen, please go to your closest emergency department Primary Care Provider Care Physician No Primary Time spent on discharge: > 30 minutes Pending Labs Laboratory Tests Test 03/19/18 21:14 03/19/18 22:23 03/20/18 02:19 03/20/18 05:38 Creatine 47 49 Kinase IU/L (23-200) IU/L (23-200) Creatine Kinase 0.8 0.7 Index Creatinine 0.36 0.36 Kinase MB ng/ml (0.0-2.4) ng/ml (0.0-2.4 (Mass) ) Troponin I < 0.012 < 0.012 ng/ml (0.000-0. ng/ml (0.000-0 120) .120) Bedside 136 Glucose mg/dL (70-220) White Blood 8.8 Count 10^3/ul (4.8-1 0.8) Red Blood 4.24 Count 10^6/ul (4.20- 5.40) Hemoglobin 13.0 g/dl (12.0-16. 0) Hematocrit 38.1 % (37.0-47.0) Mean 89.9 Corpuscular fl (82.0-101.0 Volume ) Mean 30.7 Corpuscular pg (29.0-33.0) Hemoglobin Mean 34.1 Corpuscular g/dl (32.0-37. Hemoglobin Conc 0) ent Red Cell 13.2 Distribution % (11.5-14.5) Width Platelet Count 313 10^3/UL (140-4 15) Mean Platelet 9.4 Volume fl (7.4-10.4) Immature 0.600 Granulocytes % % (0.001-0.429 ) Neutrophils % 67.8 % (39.0-77.0) Lymphocytes % 21.0 % (15.0-51.0) Monocytes % 8.6 % (0.0-11.0) Eosinophils % 1.7 % (0.0-7.0) Basophils % 0.3 % (0.0-2.0) Nucleated Red 0.0 Blood Cells % /100WBC (0.0-0 .0) Immature 0.050 Granulocytes # 10^3/ul (0.0-0 .031) Neutrophils # 6.0 10^3/ul (1.6-7 .5) Lymphocytes # 1.9 10^3/ul (0.8-2 .9) Monocytes # 0.8 10^3/ul (0.3-0 .9) Eosinophils # 0.2 10^3/ul (0.0-0 .5) Basophils # 0.0 10^3/ul (0.0-0 .1) Nucleated Red 0.0 Blood Cells # 10^3/ul (0.0-0 .0) Sodium Level 141 mmol/L (135-14 4) Potassium 3.7 Level mmol/L (3.5-5. 1) Chloride Level 108 mmol/L (97-110 ) Carbon Dioxide 25 Level mmol/L (21-31) Anion Gap 8 (5-13) Blood Urea 12 Nitrogen mg/dl (7-20) Creatinine 0.50 mg/dl (0.44-1. 00) Est Glomerular > 60 Filtrat mL/min (>60) Rate mL/min Glucose Level 123 mg/dl (70-220) Calcium Level 9.0 mg/dl (8.4-10. 2) Magnesium 2.2 Level mg/dl (1.7-2.5 ) Test 03/20/18 07:51 03/20/18 11:55 Bedside 110 110 Glucose mg/dL (70-220) mg/dL (70-220) IMAN BLANTON MD Mar 20, 2018 18:01
== END 2018-03-20 16:22 | disposition home or self-care (01) ==
LOC: E/R 13:25 → 6WM 17:17
PROVIDERS: ADMIT Internal Medicine; ATTEND Internal Medicine
DX: R07.89 Other chest pain (principal); R06.02 Shortness of breath; E11.9 Type 2 diabetes mellitus without complications; K44.9 Diaphragmatic hernia without obstruction or gangrene; K21.9 Gastro-esophageal reflux disease without esophagitis; Z98.890 Other specified postprocedural states
CPT/HCPCS: 36415; 71045; 71275; 80048; 82550; 82553; 82962; 83036; 83735; 84484; 85025; 85378; 85610; 85730; 93005; 93306; 99285; C9113; G0378; J1650; J1815; J2274; J2405; J7030; Q9967